=== PATIENT | female | born 1995 | race Two or more races ===

== ENCOUNTER 2017-08-10 07:51 | Emergency (ER) | payer OTHER ==
[~2017-08-10] VITALS: Ht 154.9 cm; Wt 66.2 kg
--- NOTE | 2017-08-10 07:53 | NUR ---
A/OX4, PT CAME TO ER FOR ON & OFF CHEST TIGHTNESS SINCE YESTERDAY, PT IS TAKING VISTARIL FOR ANXIETY. NAD VSS RR EVEN AND UNLABORED. PENDING ER MD EVALUATION
[2017-08-10] MEDS ORDERED: HYDR25CA PO (08:17)
[2017-08-10 08:45] LABS: APPEARANCE,URINE CLOUDY (CLEAR); BILIRUBIN,URINE 1+ (NEGATIVE); BLOOD, URINE 3+ Ery/uL (NEGATIVE); COLOR,URINE ORANGE (YELLOW); KETONES,URINE NEGATIVE (NEGATIVE); LEUKOCYTE ESTERASE ,URINE 2+ (NEGATIVE); NITRITE, URINE POSITIVE (NEGATIVE); PROTEIN,URINE 2+ mg/dl (NEGATIVE); UGLUCOSE NEGATIVE (NEGATIVE)
[2017-08-10 09:18] LABS: RBC,URINE TOO NUMEROUS TO COUN /HPF (0-2); WBC,URINE 21-50 /HPF (0-3)
[2017-08-10 09:19] LABS: BACTERIA,URINE Few /HPF (None Seen); SQUAMOUS EPITHELIAL CELL,UR Rare /HPF (None Seen)
--- NOTE | 2017-08-10 09:52 | NUR ---
Patient discharged to home in stable condition. Written and verbal after care instructions given. Patient verbalizes understanding of instruction. ambulatory with a steady gait.
[2017-08-10 09:53] VITALS: BP 129/75
== END 2017-08-10 09:54 | disposition home or self-care (01) ==
LOC: ER 08:01
DX: N39.0 Urinary tract infection, site not specified (principal); R07.89 Other chest pain; F41.9 Anxiety disorder, unspecified
CPT/HCPCS: 81001; 84703; 87086; 87186; 93005; 99285; A4606; Z7610; 81000-TC

== ENCOUNTER 2017-10-09 23:32 | Emergency (ER) | payer OTHER ==
[~2017-10-09] VITALS: Ht 154.9 cm; Wt 66.2 kg
[~2017-10-09 23:32] MED LIST: HYDR25CA PO
[2017-10-09 23:45] VITALS: BP 129/85
--- NOTE | 2017-10-10 00:47 | NUR ---
STREP SWAB COLLECTED. 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
--- NOTE | 2017-10-10 00:52 | NUR ---
PAC AMBREEN AT BEDSIDE FOR EVAL.
--- NOTE | 2017-10-10 01:23 | NUR ---
DANIEL CROOK AT BEDSIDE SPEAKING TO PT.
[2017-10-10] MEDS ORDERED: AMOXICILLIN TRIHYDRATE 250 MG CAPSULE ONE (01:29)
[2017-10-10] MEDS ORDERED: AMOXICILLIN TRIHYDRATE 250 MG CAPSULE PO ONE (01:30)
--- NOTE | 2017-10-10 01:33 | NUR ---
Patient discharged to home in stable condition. Written and verbal after care instructions given. Patient verbalizes understanding of instruction. ambulatory with a steady gait
== END 2017-10-10 01:33 | disposition home or self-care (01) ==
LOC: ER 23:36
DX: J02.0 Streptococcal pharyngitis (principal); F41.9 Anxiety disorder, unspecified
CPT/HCPCS: 86403-TC; A4606; Z7610